=== PATIENT | male | born 1955 | race Caucasian/White ===

== ENCOUNTER 2023-08-14 07:42 | Emergency (ER) | payer MEDICARE, OTHER, SELFPAY ==
[2023-08-14 07:44] VITALS: BP 154/95
[2023-08-14 08:20] VITALS: BMI 36.2
--- NOTE | 2023-08-14 08:21 | EDRN ---
Patient reports he is unable to open right eye to complete visual acuity. Dr. Mae notified, no new orders obtained at this time.
--- NOTE | 2023-08-14 08:52 | ED.GENMED ---
History of Present Illness
General
Chief Complaint: Eye Problems
Source: patient and spouse
Exam Limitations: none
Time Seen by Provider: 08/14/23 07:53
Nursing documentation reviewed up to this point in time: agreed with
Travel History
Have you had any contact with someone who has COVID-19?: No
Do you have any symptoms of coronavirus? Fever > 100 degrees, chills, cough, shortness of breath, sore throat, loss of taste or smell, muscle aches, or headache?: No
History of Present Illness
History of Present Illness:
68-year-old male presents emergency department due to right eye pain. He began having pain when he was driving home from [place] yesterday. He had a contact lens in. Is hard to open his eye due to pain.
Past History
Past History
ED Past Medical History: CAD, HTN, Hypercholesterolemia, VT and Other (Anemia, colitis, hiatal hernia)
ED Past Surgical History: Cardiac (Cardiac stent), Orthopedic (Left shoulder surgery, left knee replaced, right knee, left shoulder replacement) and Other (Bilateral hernia)
Social History
Tobacco: Non-smoker
Alcohol: None
Drug: None
Personal:
Living: with family
Review of Systems
Review of Systems
Allergies reviewed?: Yes
All Other Systems: Not applicable
Constitutional: Reports no symptoms
EENT: Reports other (right eye pain)
Respiratory: Reports no symptoms
Cardiac: Reports no symptoms
ABD/GI: Reports no symptoms
: Reports no symptoms
Musculoskeletal: Reports no symptoms
Skin: Reports no symptoms
Neurological: Reports no symptoms
Endocrine: Reports no symptoms
Hematologic/Lymphatic: Reports no symptoms
Phy Exam
Physical Exam
Physical Exam:
Appears uncomfortable
Eye Exam
Eye Exam: PERRL and EOMI
Able to obtain acuity?: Yes
Right 20/: 99 (160)
Left 20/: 50
Both 20/: 50
Eye Exam General: PERRL: bilateral and EOM intact: bilateral
Pupil Exam: Bilateral: round and reactive
Conjunctival Changes: right: chemosis and watery discharge
Cornea Exam: ulceration: Right
Pupil and Lens Exam: round pupil: Bilateral
Type of Exam: simple and fluorescein
Course
Orders/Labs/Results
Orders:
Orders
08/14/23 07:54
Tetracaine HCl [Tetracaine 0.5% Ophthalmic Solution] 1 drop .ROUTE .STK-MED ONE
08/14/23 07:56
Visual Acuity- Treatment ONCE
08/14/23 08:50
Ofloxacin [Ocuflox] See Dose Instructions OPHTH STAT STA
08/14/23 09:11
Fluorescein Sodium [Ful-Ayesha] 2 mg .ROUTE .STK-MED ONE
Vital Signs
Initial and Last Documented VS:
Initial Vital Signs
Temp Pulse Resp BP Pulse Ox
98.0 F 86 16 154/95 95
08/14/23 07:44 08/14/23 07:44 08/14/23 07:44 08/14/23 07:44 08/14/23 07:44
Last Documented Vital Signs
Temp Pulse Resp BP Pulse Ox
98.0 F 68 16 144/90 94
08/14/23 07:44 08/14/23 09:07 08/14/23 09:07 08/14/23 09:07 08/14/23 09:07
MDM/Problems Addressed
Differential Diagnosis Includes:
corneal uler, corneal abrasion
MDM/Problems Addressed:
68 yo male with right corneal ulcer. Treated with ofloxacin. Attempting to contact ophthalmology for f/u.
Chronic conditions affecting care: CAD
*Critical Care Note
Total Time (30-74mins, 75-104mins- exclusive of procedures): Not Applicable
Patient Management
Discussion with other providers: Aquatic Physiotherapist (d/w Dr. Aburto, who will see in office at 9am tomorrow)
Escalation/DeEscalation of care consider admission/obs:
admit not indicated
ED Attending Note
-
Portions of this chart may have been created with voice recognition software.� Occasional wrong word or��sound alike� substitutions may have occurred due to the inherent limitations of voice recognition software.
Discharge Plan
Departure
Patient Disposition: Home (Routine Discharge)
Date of Disposition: 08/14/23
Time of Disposition: 09:23
Patient with high blood pressure during this ER visit?: Yes
Condition: Good
Discharge Problem:
Corneal ulcer of right eye
Instructions: Corneal Ulcer ED, BLOOD PRESSURE
Prescriptions:
New
ofloxacin 0.3 % drops
2 drp ophthalmic (eye) Q2H Qty: 10 0RF
Rx Instructions:
right eye
No Action
triamcinolone acetonide [Nasacort] 10.8 ML aerosol,spray
2 sprays intranasal DAILYPRN PRN (Reason: allergies)
zaleplon [Sonata] 10 MG capsule
10 mg PO HSPRN PRN (Reason: sleep)
aspirin 81 MG tablet,delayed release (DR/EC)
81 mg PO DAILY Qty: 0 0RF
losartan 50 MG tablet
100 mg PO DAILY
atorvastatin 40 MG tablet
40 mg PO QPM
cetirizine 10 MG tablet
10 mg PO DAILY
docusate sodium 50 MG capsule
50 mg PO HS
allopurinol 100 MG tablet
100 mg PO BID
omeprazole 40 MG capsule,delayed release(DR/EC)
40 mg PO DAILY
ferrous sulfate [FeroSul] 325 MG tablet
325 mg PO DAILY
citalopram 40 MG tablet
40 mg PO DAILY
tamsulosin 0.4 mg Capsule
0.4 mg PO DAILY
levothyroxine 50 mcg Tablet
50 mcg PO DAILY
melatonin 5 mg Tablet
5 mg PO HS
Referrals:
Valeriano Aburto MD [Active] - 08/15/23 9:00 am
Ledy Melo PA-C [Family Provider] -
Activity Restrictions/Additional Instructions:
use Ofloxacin drops every 2 hours while awake, every 4 hours overnight.
Interventions
Interventions:
*Risk Screen - Suicide Last Done: 08/14/23 08:36
*General Assessment Last Done: 08/14/23 08:20
*Neglect/Abuse Screening Last Done: 08/14/23 07:44
ED- Fall Risk Assessment Last Done: 08/14/23 08:20
*ED COVID-19 Vaccine History Last Done: 08/14/23 07:44
Discharge Date and Time
Print Language: KHMER
[2023-08-14] MEDS: OCUFLOX 2 DROP OPHTH (09:04)
[2023-08-14 09:07] VITALS: BP 144/90
== END 2023-08-14 09:45 | disposition home or self-care (01) ==
LOC: EMR 07:42
PROVIDERS: EMERGENCY PHYSICIAN Emergency Medicine; FAMILY PHYSICIAN Physician Assistant Medical
DX: H16.001 Unspecified corneal ulcer, right eye (principal); R09.81 Nasal congestion; I25.10 Atherosclerotic heart disease of native coronary artery without angina pectoris; I10 Essential (primary) hypertension; E78.00 Pure hypercholesterolemia, unspecified; D64.9 Anemia, unspecified; K52.9 Noninfective gastroenteritis and colitis, unspecified; D50.9 Iron deficiency anemia, unspecified; F32.A Depression, unspecified; M19.90 Unspecified osteoarthritis, unspecified site; M10.9 Gout, unspecified; I25.2 Old myocardial infarction; Z95.5 Presence of coronary angioplasty implant and graft; Z96.612 Presence of left artificial shoulder joint; Z96.652 Presence of left artificial knee joint; Z85.828 Personal history of other malignant neoplasm of skin; Z79.82 Long term (current) use of aspirin
CPT/HCPCS: 99283

== ENCOUNTER → 2023-10-18 08:30 | Outpatient (REF) | payer MEDICARE, OTHER, SELFPAY | LOC: DHCBC/DCA 08:30 | PROVIDERS: ATTENDING PHYSICIAN Internal Medicine; FAMILY PHYSICIAN Physician Assistant Medical | DX: I25.10 Atherosclerotic heart disease of native coronary artery without angina pectoris (principal); I10 Essential (primary) hypertension; R07.89 Other chest pain | CPT/HCPCS: 78452; 93017; A9500; J2785 ==

== ENCOUNTER → 2023-10-25 13:39 | Outpatient (REF) | payer MEDICARE, OTHER, SELFPAY | LOC: HWRCS 13:39 | PROVIDERS: ATTENDING PHYSICIAN Internal Medicine; FAMILY PHYSICIAN Physician Assistant Medical | DX: I25.10 Atherosclerotic heart disease of native coronary artery without angina pectoris (principal); I10 Essential (primary) hypertension; R07.89 Other chest pain | CPT/HCPCS: 93306 ==

== ENCOUNTER → 2023-11-15 06:33 | Day surgery (SDC) | payer MEDICARE, OTHER, SELFPAY ==
[2023-11-10 08:15] VITALS: BMI 35.2
[2023-11-15] VITALS (13 sets, daily range): BP systolic 132–156; BP diastolic 78–89; BMI 35.1
[2023-11-15 08:25] LABS: ACT-LR - POC 261 Seconds (116-155)
--- NOTE | 2023-11-15 08:44 | ITS.CL.CATH ---
Traffic Engineering Technician - Catheterization
Cardiac Catheterization
Procedure Report:
CARDIAC CATHETERIZATION REPORT
Date of Procedure: 11/15/2023
Referring: Dr. James Mcmahan MD, PhD
Indication: cardiomyopathy w/ newly reduced EF and regional wall motion abnormalities; atypical chest pain
PROCEDURE:
1. Right heart catheterization
2. Left heart catheterization
3. Coronary angiography
ACCESS:
6 Arabic right radial artery
5 Arabic right antecubital vein
CATHETERS:
1. 5 Arabic [place]
2. 6 Arabic JL3.5
3. 6 Arabic JR4
HEMODYNAMIC DATA
LV 116/6 (EDP 11) mmHg
AO 118/74 (mean 94)
RA 9
RV 31/7 (mean 13)
PA 32/11 (mean 21)
PCWP 12
SaO2 94.4%
SvO2 71.3%
CO/CI 6.6/3.1 L/min/m2
SVR 1045 dsc*-5
PVR 1.4 Wood units
CORONARY ANGIOGRAPHY
Dominance: right
LM: normal vessel
LAD: large vessel giving rise to a small D1, moderate caliber D2, and moderate caliber D3. There is a patent stent in the proximal LAD. There is ostial stenosis in the jailed D2 with NORRIS 3 flow.
LCx: large vessel giving rise to a large branching OM1. There is mild non-obstructive disease.
RCA: dominant vessel giving rise to a moderate-caliber RPDA and several small RPL branches. There are patent stents in the proximal to mid-RCA. There is a focal ~50% stenosis in the proximal RPDA that is progressed from prior angiography. This was
further assessed with iFR and found to be negative (0.97).
iFR of RCA
The decision was made to perform physiologic testing. The diagnostic catheter was removed over a wire and exchanged for a 6F JR4 guide catheter. The guiding catheter was advanced into the ascending aorta and seated in the RCA. Additional heparin
was given to obtain an ACT greater than 250 seconds. An iFR wire was zeroed outside of the body, then inserted into the guiding sheath. The wire was advanced and the transducer was normalized just outside of the guiding catheter tip. The wire was
advanced into the distal RPDA. Three iFR measurements were taken. The lesion was determined to be nonocclusive (iFR 0.97).
Closure Device: TR band
Radiation dose (mGy): 462.66
DAP (cm2.Gy): 44.7538
Fluoroscopy time (minutes): 8.8
CONCLUSIONS:
1. Stable coronary artery disease in a right dominant system.
2. Borderline normal cardiac filling pressure, no pulmonary hypertension, and normal cardiac output and index.
RECOMMENDATIONS:
1. Expectant management after cardiac catheterization via right approach.
2. Continued aggressive secondary prevention of coronary artery disease.
3. GDMT titration for management of cardiomyopathy with mildly reduced EF.
4. Follow up with Dr. Mcmahan.
Copy to: Dr. James Mcmahan MD, PhD
Juventino Quinteros MD, PhD
== END | disposition home or self-care (01) ==
LOC: CATH 06:33
PROVIDERS: ATTENDING PHYSICIAN Student in an Organized Health Care Education/Training Program
DX: I25.10 Atherosclerotic heart disease of native coronary artery without angina pectoris (principal); R07.9 Chest pain, unspecified; I10 Essential (primary) hypertension; E78.5 Hyperlipidemia, unspecified; E03.9 Hypothyroidism, unspecified; K21.9 Gastro-esophageal reflux disease without esophagitis; N40.0 Benign prostatic hyperplasia without lower urinary tract symptoms; G47.33 Obstructive sleep apnea (adult) (pediatric); E66.9 Obesity, unspecified; Z68.35 Body mass index [BMI] 35.0-35.9, adult; G47.00 Insomnia, unspecified; Z95.5 Presence of coronary angioplasty implant and graft; Z82.49 Family history of ischemic heart disease and other diseases of the circulatory system; Z79.82 Long term (current) use of aspirin
CPT/HCPCS: C1887; C1894; C1769; 85347; 93460; 93571; Q9967

== ENCOUNTER → 2023-12-09 07:43 | Outpatient (REF) | payer MEDICARE, OTHER, SELFPAY ==
[2023-12-09 08:55] LABS: Blood Urea Nitrogen 17 mg/dl (9-20); Calcium 8.9 mg/dl (8.4-10.2); Carbon Dioxide 23 mmol/L (22-30); Chloride 106 mmol/L (98-107); Glucose 101 mg/dl (70-99); HDL Cholesterol 40 mg/dl; LDL Cholesterol, Calculated 57 mg/dl; Potassium 4.1 mmol/L (3.5-5.1); Sodium 142 mmol/L (135-145); Total Cholesterol 117 mg/dl (50-199); Triglyceride 103 mg/dl (10-149); Very Low Density Lipoprotein 20 mg/dl (0-30); eGFR > 60.00
[2023-12-09 09:03] LABS: Glycohemoglobin (HgbA1c) 5.6 % (4.0-5.6)
== END ==
LOC: REG 07:43
PROVIDERS: ATTENDING PHYSICIAN Nurse Practitioner Gerontology
DX: I42.8 Other cardiomyopathies (principal); I25.10 Atherosclerotic heart disease of native coronary artery without angina pectoris; K81.0 Acute cholecystitis
CPT/HCPCS: 36415; 80048; 80061; 83036

== ENCOUNTER → 2023-12-29 07:55 | Outpatient (REF) | payer MEDICARE, OTHER, SELFPAY ==
[2023-12-29 10:42] LABS: Blood Urea Nitrogen 17 mg/dl (9-20); Calcium 9.4 mg/dl (8.4-10.2); Carbon Dioxide 28 mmol/L (22-30); Chloride 105 mmol/L (98-107); Glucose 94 mg/dl (70-99); Potassium 3.9 mmol/L (3.5-5.1); Sodium 143 mmol/L (135-145); eGFR > 60.00
== END ==
LOC: REG 07:55
PROVIDERS: ATTENDING PHYSICIAN Nurse Practitioner Gerontology
DX: I25.10 Atherosclerotic heart disease of native coronary artery without angina pectoris (principal)
CPT/HCPCS: 36415; 80048

== ENCOUNTER → 2024-04-19 09:01 | Outpatient (REF) | payer MEDICARE, OTHER, SELFPAY | LOC: HWRCS 09:01 | PROVIDERS: ATTENDING PHYSICIAN Nurse Practitioner Gerontology; FAMILY PHYSICIAN Physician Assistant Medical | DX: I42.8 Other cardiomyopathies (principal) | CPT/HCPCS: 93306 ==

== ENCOUNTER → 2024-11-02 07:48 | Outpatient (REF) | payer MEDICARE, OTHER, SELFPAY ==
[2024-11-02 09:59] LABS: ALT (SGPT) 17 U/L (0-50); AST (SGOT) 20 U/L (17-59); Albumin 3.9 g/dl (3.5-5.0); Alkaline Phosphatase 52 U/L (38-126); Blood Urea Nitrogen 24 mg/dl (9-20); Calcium 9.3 mg/dl (8.4-10.2); Carbon Dioxide 28 mmol/L (22-30); Chloride 109 mmol/L (98-107); Glucose 96 mg/dl (70-99); HDL Cholesterol 32 mg/dl; LDL Cholesterol, Calculated 52 mg/dl; Potassium 4.8 mmol/L (3.5-5.1); Sodium 142 mmol/L (135-145); Total Protein 6.5 g/dl (6.3-8.2); Very Low Density Lipoprotein 24 mg/dl (0-30); eGFR > 60.00
== END ==
LOC: REG 07:48
PROVIDERS: ATTENDING PHYSICIAN Internal Medicine; FAMILY PHYSICIAN Physician Assistant Medical
DX: I25.10 Atherosclerotic heart disease of native coronary artery without angina pectoris (principal); I10 Essential (primary) hypertension
CPT/HCPCS: 36415; 80053; 80061

== ENCOUNTER → 2024-11-05 13:14 | Outpatient (REF) | payer MEDICARE, OTHER, SELFPAY | LOC: RCS 13:14 | PROVIDERS: ATTENDING PHYSICIAN Internal Medicine; FAMILY PHYSICIAN Physician Assistant Medical | DX: I25.10 Atherosclerotic heart disease of native coronary artery without angina pectoris (principal); I10 Essential (primary) hypertension; Z95.5 Presence of coronary angioplasty implant and graft; I49.3 Ventricular premature depolarization | CPT/HCPCS: 93225; 93226 ==

== ENCOUNTER → 2024-11-30 12:53 | Outpatient (REF) | payer MEDICARE, OTHER, SELFPAY ==
[2024-11-30 13:43] LABS: Hematocrit 40.1 % (39.0-52.0); Hemoglobin 13.5 g/dL (13.0-18.0); Mean Corp Hgb Conc. 33.7 g/dL (33.0-37.0); Mean Corpuscular Volume 94.8 fL (80.0-94.0); Nucleated Red Blood Cells % 0 % (-); Platelet Count 190 10^3/uL (130-400); Red Cell Dist. Width 14.4 % (11.5-14.5)
[2024-11-30 14:05] LABS: ALT (SGPT) 21 U/L (0-50); AST (SGOT) 23 U/L (17-59); Albumin 4.2 g/dl (3.5-5.0); Alkaline Phosphatase 60 U/L (38-126); Blood Urea Nitrogen 19 mg/dl (9-20); Calcium 9.4 mg/dl (8.4-10.2); Carbon Dioxide 26 mmol/L (22-30); Chloride 105 mmol/L (98-107); Glucose 83 mg/dl (70-99); Potassium 4.5 mmol/L (3.5-5.1); Sodium 137 mmol/L (135-145); Total Protein 6.9 g/dl (6.3-8.2); eGFR > 60.00
== END ==
LOC: SDSPAT 12:53
PROVIDERS: ATTENDING PHYSICIAN Student in an Organized Health Care Education/Training Program; FAMILY PHYSICIAN Physician Assistant Medical; OTHER PHYSICIAN Internal Medicine
DX: I25.10 Atherosclerotic heart disease of native coronary artery without angina pectoris (principal)
CPT/HCPCS: 36415; 80053; 85025; 93005

== ENCOUNTER 2024-12-04 10:46 | Day surgery (SDC) | payer MEDICARE, OTHER, SELFPAY ==
[2024-11-30 13:17] VITALS: BMI 35.3
[2024-12-04] VITALS (10 sets, daily range): BP systolic 110–137; BP diastolic 70–89; BMI 35.3
[2024-12-04] MEDS: NSS 306 ML IV (11:56)
--- NOTE | 2024-12-04 20:30 | ITS.CL.PN ---
Assistant Golf Coach - Procedure Note
Procedure
Procedure Note:
CARDIAC CATHETERIZATION REPORT
Date of Procedure: 12/04/2024
Referring: Dr. Yousif Mcmhaan MD, PhD
Indication: Anginal chest pain
PROCEDURE(S)
1. left heart catheterization
2. coronary angiography
ACCESS: 6F right radial artery (closure: radial band)
CATHETERS
1. 6F JR4
2. 6F JL3.5
MODERATE SEDATION: 25 minutes of moderate sedation was utilized. An independent medical record specialist was present to assist with and help manage the patient's level of consciousness and physiologic status.
HEMODYNAMIC DATA
LV 114/30 (EDP 18) mmHg
AO 114/73 (mean 92) mmHg
CORONARY ANGIOGRAPHY
Dominance: right
LM: normal vessel
LAD: large vessel giving rise to a small D1, moderate caliber D2, and moderate caliber D3. There is a patent stent in the proximal LAD. There is ostial stenosis in the jailed D2 with NORRIS 3 flow.
LCx: large vessel giving rise to a large branching OM1. There is mild non-obstructive disease.
RCA: dominant vessel giving rise to a moderate-caliber RPDA and several small RPL branches. There are patent stents in the proximal to mid-RCA. There is a focal ~40% stenosis in the proximal RPDA that unchanged from prior angiography (at which time
it was evaluated by iFR and found to be negative at 0.97).
RADIATION: dose 276 mGy; DAP 17.1 Gy*cm2; fluoroscopy time 4.5 min
CONCLUSIONS
1. Nonobstructive coronary artery disease unchanged from 2023 angiography
2. Mildly elevated LV filling pressure and no aortic stenosis
RECOMMENDATIONS
1. Aggressive secondary prevention of coronary artery disease
Copy to: Dr. Yousif Mcmahan MD, PhD (medical examiner); THI Pratt (PCP)
Signed: Juventino Quinteros MD, PhD
== END 2024-12-04 17:05 | disposition home or self-care (01) ==
LOC: CATH 10:46
PROVIDERS: ATTENDING PHYSICIAN Student in an Organized Health Care Education/Training Program; FAMILY PHYSICIAN Physician Assistant Medical; OTHER PHYSICIAN Internal Medicine
DX: I25.119 Atherosclerotic heart disease of native coronary artery with unspecified angina pectoris (principal); I10 Essential (primary) hypertension; E78.5 Hyperlipidemia, unspecified; I44.0 Atrioventricular block, first degree; Z95.5 Presence of coronary angioplasty implant and graft; G47.33 Obstructive sleep apnea (adult) (pediatric); E11.9 Type 2 diabetes mellitus without complications; I25.5 Ischemic cardiomyopathy; I49.3 Ventricular premature depolarization; Z79.890 Hormone replacement therapy; Z79.899 Other long term (current) drug therapy; Z79.82 Long term (current) use of aspirin; I47.20 Ventricular tachycardia, unspecified; I49.5 Sick sinus syndrome
CPT/HCPCS: 99152; 99153; 93458; C1769; C1894; Q9967